=== PATIENT | female | born 1940 | race African-American/Black ===

== ENCOUNTER 2024-01-01 19:21 | Emergency (ER) | payer MEDICARE, OTHER, SELFPAY ==
[2024-01-01 19:23] VITALS: BP 120/72
--- NOTE | 2024-01-01 19:39 | ED.MUSCINJ ---
HPI-Injury
General
Chief Complaint: Musculo-Skeletal Complaint
Source: patient and ambulance crew
Exam Limitations: none
Time Seen by Provider: 01/01/24 19:30
Nursing documentation reviewed up to this point in time: agreed with
History of Present Illness-Injury
Initial Injury comments:
83-year-old female who lives alone states she turned the wrong way standing in her kitchen and she fell injuring her right hip. She denies head injury. She denies any other injury. She is not anticoagulated. Pain in right hip is 2/10 when she is
still and 10/10 with any movement.
Past History
Past History
ED Past Medical History: Asthma, HTN, Hypercholesterolemia and Other (Cataracts)
ED Past Surgical History: Orthopedic
Social History
Tobacco: Non-smoker
Alcohol: None
Living: alone
Phy Exam
Physical Exam
Physical Exam:
GENERAL: No acute distress. A&Ox3.
CONSTITUTIONAL: Afebrile.
EYES: PERRL, conjunctivae normal
ENMT: moist mucus membranes, Pharynx nl
RESPIRATORY: Regular respirations, nonlabored, lungs clear.
CARDIOVASCULAR: Regular rate and rhythm, no murmurs, no rubs.
GI: Soft, nontender, normal BS
MUSCULOSKELETAL: No spinal bony tenderness. Tender right hip area, unable to move right leg without significant hip pain. Distal neurovascular intact. Moves all other extremities with ease. Well perfused.
SKIN: Warm, dry, normal
PSYCH: Normal mood and affect. Well kept, interactive and appropriate
NEUROLOGIC: Awake, alert and oriented. No focal neurological deficits
Injury Course
Orders/Labs/Results
Orders:
Orders
01/01/24 19:37
Morphine Sulfate 4 mg IV NOW STA
01/01/24 19:38
Electrocardiogram (*1) Urgent
Reason for Study: PreOp
EKG- Treatment ONCE
Ondansetron Injectable [Zofran] 4 mg IV NOW STA
01/01/24 19:42
Hip, Right 2-3 Views [CR Hip - RT w/wo Pel 2-3 Vw*] Urgent
Comment:
Reason For Exam: pain after fall
Include a pelvis x-ray?: Yes
01/01/24 20:00
Complete Blood Count/With Diff Urgent
Comprehensive Metabolic Panel Urgent
Protime/PTT Urgent
01/01/24 20:10
0.9% Sodium Chloride 500 ml [Nss] 500 ml IV ONCE
Abnormal Lab Results
01/01/24
20:00
MCHC 32.0 L g/dL
(33.0-37.0)
Absolute Monos (auto) 0.7 H 10^3/uL
(0.1-0.6)
Lymphocytes % 17.3 L %
(20.5-51.1)
Monocytes % 10.9 H %
(1.7-9.3)
APTT 21.5 L Sec
(23.4-35.0)
Glucose 121 H mg/dl
(70-99)
01/01/24 20:00
01/01/24 20:00
MDM/Problems Addressed
Differential Diagnosis Includes:
Hip fracture, contusion
MDM/Problems Addressed:
83-year-old female who lives alone states she turned the wrong way standing in her kitchen and she fell injuring her right hip. She denies head injury. She denies any other injury. She is not anticoagulated. Pain in right hip is 2/10 when she is
still and 10/10 with any movement.
01/01/20242045 PM
Good pain relief after IV Morphine
Right hip x-ray initially read by this examiner, no acute fracture noted.
CBC normal
CMP normal
Coags normal
01/01/20242103 PM
Patient is out of bed and walking independently very well and steadily with a walker with no significant pain.
She is stable for discharge.
There is a friend at her bedside who she can stay with tonight if she feels the need to.
*Critical Care Note
Total Time (30-74mins, 75-104mins- exclusive of procedures): Not Applicable
ED Attending Note
-
Portions of this chart may have been created with voice recognition software.� Occasional wrong word or��sound alike� substitutions may have occurred due to the inherent limitations of voice recognition software.
Discharge Plan
Departure
Patient Disposition: Home (Routine Discharge)
Date of Disposition: 01/01/24
Time of Disposition: 21:05
Patient with high blood pressure during this ER visit?: No
Condition: Good
Discharge Problem:
Fall from slip, trip, or stumble, Contusion of right hip
Instructions: Contusion (DC), Using Cold for Pain
Prescriptions:
No Action
alprazolam 1 MG tablet
1 mg PO HS
mupirocin 1 APPLIC ointment
1 applic intranasal BID Qty: 1 0RF
Patient Comments:
last dose, 06/10/21
celecoxib 200 MG capsule
200 mg PO DAILY Qty: 30 0RF
Rx Instructions:
Take with food.
Do not take within 2 hours of Aspirin.
sennosides [senna] 1 TABLET tablet
2 tab PO BID 0RF
lidocaine [Aspercreme (lidocaine)] 1 PATCH adhesive patch,medicated
2 patch topical DAILY PRNQty: 14 0RF
Rx Instructions:
Over the counter. Remove nightly.
Apply to sides of L knee. Do not place over incision.
aspirin 325 MG tablet
325 mg PO DAILY Qty: 28 0RF
Rx Instructions:
Take daily x4 weeks for blood clot prevention.
magnesium hydroxide 30 ML suspension
30 ml PO DAILY 0RF
docusate sodium 100 MG capsule
100 mg PO BID 0RF
amlodipine 5 MG tablet
5 mg PO DAILY Qty: 0 0RF
Rx Instructions:
Hold if systolic blood pressure <130 while on Oxycodone.
acetaminophen [Tylenol Extra Strength] 500 MG tablet
1,000 mg PO Q6H Qty: 0 0RF
Rx Instructions:
Do not exceed >4000 mg daily.
oxycodone 5 MG tablet
5 mg PO Q4HPRN PRN (Reason: moderate-severe pain) Qty: 30 0RF
Rx Instructions:
1 tab moderate pain or 2 if pain severe
Dx total joint replacement
ongoing therapy
hydroxyzine HCl 25 mg tablet
25 mg PO DAILY PRN (Reason: itching) Qty: 7 0RF
Referrals:
Rainer Spivey MD [Active] - As needed
Kike Whitten MD [Family Provider] - As needed
Activity Restrictions/Additional Instructions:
As we discussed, Tylenol as needed for pain.
Use the walker at all times when up and around until you can walk comfortably without
See your doctor or the orthopedic doctor if your hip is not a lot better in 1 week or not 100% better in 2 to 3 weeks
Interventions
Interventions:
*Risk Screen - Suicide Last Done: 01/01/24 19:23
*General Assessment Last Done: 01/01/24 19:23
*Neglect/Abuse Screening Last Done: 01/01/24 19:23
ED- Fall Risk Assessment Last Done: 01/01/24 20:04
*ED COVID-19 Vaccine History Last Done: 01/01/24 20:04
*Nursing Disposition Last Done: 01/01/24 21:29
ED-Musculoskeletal Assessment Last Done: 01/01/24 20:04
Discharge Date and Time
Discharge Date/Time: 01/01/24 21:30
[2024-01-01] MEDS: MORPHINE SULFATE 4 MG IV (20:02)
[2024-01-01] MEDS: ZOFRAN 4 MG IV (20:03)
[2024-01-01 20:04] VITALS: BMI 30.8
[2024-01-01 20:06] LABS: % Basophils 0.3 % (0-2); % Eosinophils 0.8 % (0-6); % Immature Granulocytes 0.3 % (0-0.5); % Lymphocytes 17.3 % (20.5-51.1); % Monocytes 10.9 % (1.7-9.3); % Neutrophils 70.4 % (42.2-75.2); Absolute Eosinophils 0.1 10^3/uL (0-0.7); Absolute Lymphocytes 1.2 10^3/uL (1.2-3.4); Absolute Monocytes 0.7 10^3/uL (0.1-0.6); Absolute Neutrophils 4.7 10^3/uL (1.4-6.5); Hematocrit 41.2 % (37.0-47.0); Hemoglobin 13.2 g/dL (12.0-16.0); Mean Corpuscular Hgb 28.3 pg (27.0-31.0); Mean Corpuscular Volume 88.4 fL (81.0-99.0); Mean Platelet Volume 10.1 fL (7.4-10.4); Nucleated Red Blood Cells % 0 %; Platelet Count 222 10^3/uL (130-400); Red Blood Cell Count 4.66 10^6/uL (4.20-5.40); Red Cell Dist. Width 13.7 % (11.5-14.5); White Blood Cell Count 6.6 10^3/uL (4.8-10.8)
[2024-01-01] MEDS: NSS 500 IV (20:11)
[2024-01-01 20:38] LABS: ALT (SGPT) 14 U/L (0-35); AST (SGOT) 23 U/L (14-36); Albumin 3.6 g/dl (3.5-5.0); Alkaline Phosphatase 52 U/L (38-126); Blood Urea Nitrogen 15 mg/dl (7-17); Calcium 8.8 mg/dl (8.4-10.2); Carbon Dioxide 25 mmol/L (22-30); Chloride 103 mmol/L (98-107); Estimated Creatinine Clearance 57 ml/min; Glucose 121 mg/dl (70-99); Potassium 4.2 mmol/L (3.5-5.1); Sodium 137 mmol/L (135-145); Total Bilirubin 0.3 mg/dl (0.2-1.3); Total Protein 6.4 g/dl (6.3-8.2); eGFR > 60.00
[2024-01-01 20:39] LABS: INR 1.01; PT 13.1 Sec (11.4-14.6)
[2024-01-01 20:40] LABS: APTT 21.5 Sec (23.4-35.0)
[2024-01-01 21:07] VITALS: BP 146/73
== END 2024-01-01 21:30 | disposition home or self-care (01) ==
LOC: EMR 19:21
PROVIDERS: Registered Nurse; EMERGENCY PHYSICIAN Emergency Medicine; FAMILY PHYSICIAN Internal Medicine Geriatric Medicine
DX: S70.01XA Contusion of right hip, initial encounter (principal); W01.0XXA Fall on same level from slipping, tripping and stumbling without subsequent striking against object, initial encounter
CPT/HCPCS: 99284; 96374; 96375; 96361; 73502; 80053; 85025; 85610; 85730

== ENCOUNTER 2024-04-24 09:56 | Emergency (ER) | payer MEDICARE, OTHER, SELFPAY ==
[2024-04-24 10:02] VITALS: BP 187/95
--- NOTE | 2024-04-24 11:35 | ED.GENMED ---
History of Present Illness
General
Chief Complaint: Skin Problem
Source: patient
Exam Limitations: none
Time Seen by Provider: 04/24/24 10:47
Nursing documentation reviewed up to this point in time: agreed with
Travel History
Have you had any contact with someone who has COVID-19?: No
Do you have any symptoms of coronavirus? Fever > 100 degrees, chills, cough, shortness of breath, sore throat, loss of taste or smell, muscle aches, or headache?: No
History of Present Illness
History of Present Illness:
83-year-old female past medical history of hypertension hyperlipidemia anxiety depression presenting to the emergency department today with concerns of bilateral feet itchiness over the past few months. Had a recent workup at a local hospital 1
week ago with no emergent findings. Here patient in no distress initial blood pressure is elevated. Normal examination of lower extremities no obvious rashes.
Past History
Past History
ED Past Medical History: Asthma, HTN, Hypercholesterolemia and Other (Cataracts)
ED Past Surgical History: Orthopedic
Social History
Tobacco: Non-smoker
Alcohol: None
Living: alone
Review of Systems
Review of Systems
Allergies reviewed?: Yes
All Other Systems: ROS reviewed and negative except as documented in HPI and ROS
Phy Exam
Physical Exam
Physical Exam:
GENERAL: Alert , in no apparent distress
EYE: pupils equal and reactive
NECK: Supple, no significant adenopathy.
ENT: o/p clr, mmm.
CARDIAC: Regular rate and rhythm .
LUNGS: Clear breath sounds bilaterally, no acute respiratory distress, no wheezes/rales/rhonchi
ABDOMEN: Soft, without focal tenderness, no r/g, no cvat
NEUROLOGICAL: Alert and oriented, no focal neuro deficits
SKIN: Warm and dry, skin intact.
MUSCULOSKELETAL: No edema, well perfused.
PSYCH: Normal and appropriate interaction.
Course
Orders/Labs/Results
Orders:
Orders
04/24/24 11:34
Gabapentin [Neurontin] 300 mg PO NOW STA
Vital Signs
Initial and Last Documented VS:
Initial Vital Signs
Temp Pulse Resp BP Pulse Ox
99.1 F 81 22 187/95 97
04/24/24 10:02 04/24/24 10:02 04/24/24 10:02 04/24/24 10:02 04/24/24 10:02
Last Documented Vital Signs
Temp Pulse Resp BP Pulse Ox
99.1 F 81 22 187/95 97
04/24/24 10:02 04/24/24 10:02 04/24/24 10:02 04/24/24 10:02 04/24/24 10:02
MDM/Problems Addressed
MDM/Problems Addressed:
83-year-old female presenting to the emergency department today with concerns of bilateral burning and itchiness to her feet that been ongoing for months. She has not followed up with her primary care doctor recently. Also noted some intermittent
rashes none currently. On exam she has normal distal pulses general sensation normal skin tone no obvious rashes. Symptoms potentially consistent with neuropathic pain, neuropathy. Patient was offered gabapentin to help with symptoms and close
outpatient follow-up. Return precautions given.
*Critical Care Note
Total Time (30-74mins, 75-104mins- exclusive of procedures): Not Applicable
ED Attending Note
-
Portions of this chart may have been created with voice recognition software.� Occasional wrong word or��sound alike� substitutions may have occurred due to the inherent limitations of voice recognition software.
Discharge Plan
Departure
Patient Disposition: Home (Routine Discharge)
Date of Disposition: 04/24/24
Time of Disposition: 11:42
Patient with high blood pressure during this ER visit?: No
Condition: Good
Covid-19: Not Applicable
Discharge Problem:
Neuropathy
Instructions: Neuropathic pain
Prescriptions:
New
gabapentin 300 mg capsule
300 mg PO TID 14 Days Qty: 42 0RF
fexofenadine [Leatha Allergy] 180 mg tablet
180 mg PO DAILY Qty: 14 0RF
No Action
alprazolam 1 MG tablet
1 mg PO HS
mupirocin 1 APPLIC ointment
1 applic intranasal BID Qty: 1 0RF
Patient Comments:
last dose, 06/10/21
celecoxib 200 MG capsule
200 mg PO DAILY Qty: 30 0RF
Rx Instructions:
Take with food.
Do not take within 2 hours of Aspirin.
sennosides [senna] 1 TABLET tablet
2 tab PO BID 0RF
lidocaine [Aspercreme (lidocaine)] 1 PATCH adhesive patch,medicated
2 patch topical DAILY PRNQty: 14 0RF
Rx Instructions:
Over the counter. Remove nightly.
Apply to sides of L knee. Do not place over incision.
aspirin 325 MG tablet
325 mg PO DAILY Qty: 28 0RF
Rx Instructions:
Take daily x4 weeks for blood clot prevention.
magnesium hydroxide 30 ML suspension
30 ml PO DAILY 0RF
docusate sodium 100 MG capsule
100 mg PO BID 0RF
amlodipine 5 MG tablet
5 mg PO DAILY Qty: 0 0RF
Rx Instructions:
Hold if systolic blood pressure <130 while on Oxycodone.
acetaminophen [Tylenol Extra Strength] 500 MG tablet
1,000 mg PO Q6H Qty: 0 0RF
Rx Instructions:
Do not exceed >4000 mg daily.
oxycodone 5 MG tablet
5 mg PO Q4HPRN PRN (Reason: moderate-severe pain) Qty: 30 0RF
Rx Instructions:
1 tab moderate pain or 2 if pain severe
Dx total joint replacement
ongoing therapy
hydroxyzine HCl 25 mg tablet
25 mg PO DAILY PRN (Reason: itching) Qty: 7 0RF
Activity Restrictions/Additional Instructions:
You came to the emergency department today with concerns of symptoms potentially consistent with neuropathy. Please take gabapentin 3 times daily or as needed for symptoms and follow-up close with the primary care doctor. Return to the emergency
department for any worsening, new or concerning symptoms. You also take an antihistamine before bed.
Interventions
Interventions:
*Risk Screen - Suicide Last Done: 04/24/24 11:08
*General Assessment Last Done: 04/24/24 11:08
*Neglect/Abuse Screening Last Done: 04/24/24 11:08
*ED COVID-19 Vaccine History Last Done: 04/24/24 11:08
ED-Skin Assessment Last Done: 04/24/24 11:08
Discharge Date and Time
Print Language: [id number]
[2024-04-24] MEDS: NEURONTIN 300 MG PO (11:41)
[2024-04-24 11:45] VITALS: BP 181/72
== END 2024-04-24 12:10 | disposition home or self-care (01) ==
LOC: EMR 09:56
PROVIDERS: EMERGENCY PHYSICIAN Emergency Medicine
DX: G62.9 Polyneuropathy, unspecified (principal); I10 Essential (primary) hypertension; E78.00 Pure hypercholesterolemia, unspecified; J45.909 Unspecified asthma, uncomplicated; F41.9 Anxiety disorder, unspecified; F32.A Depression, unspecified; M19.90 Unspecified osteoarthritis, unspecified site; Z96.651 Presence of right artificial knee joint
CPT/HCPCS: 99283